=== PATIENT | male | born 1955 | race African-American/Black ===

== ENCOUNTER 2021-12-22 00:42 | Inpatient (IN) | payer MEDICARE ==
[~2021-12-22] VITALS: Ht 172.7 cm; Wt 111.6 kg
[~2021-12-22 00:42] MED LIST: BACTRIM DS TAB1 EACH PO
[2021-12-22 01:04] LABS: EOSINOPHIL 4.3 % (0-7); HCT 33.6 % (42.0-52.0); HGB 11.1 g/dl (13.2-18.0); LYMPHOCYTE 23.6 % (15-48); MCH 29.8 pg (25.0-31.0); MCV 90.3 fL (78.0-100.0); MONOCYTE 9.2 % (0-12); MPV 10.2 fL (6.0-9.5); NEUTROPHIL 61.5 % (41-80); NRBC 0; PLT 305 K/uL (150-400); RBC 3.72 M/uL (4.70-6.00); WBC 10.1 K/uL (4.0-10.5)
[2021-12-22 01:14] LABS: INR 0.93 (0.9-1.2); PROTHROMBIN TIME 11.9 SECONDS (11.8-13.4); PTT 28.7 SECONDS (24.4-34.7)
[2021-12-22 01:25] LABS: ALBUMIN 2.8 g/dL (3.4-5.0); BILIRUBIN - TOTAL 0.4 mg/dL (0.2-1.0); BUN/CREAT RATIO (CALC) 9.1 RATIO; CREATININE 2.08 mg/dL (0.67-1.17); GLOBULIN (CALCULATION) 3.8 g/dL; POTASSIUM 3.8 mmol/L (3.5-5.1); TOTAL PROTEIN 6.6 g/dL (6.4-8.2)
[2021-12-22 04:13] LABS: RETICULOCYTE COUNT 2.7 % (1.0-2.0)
[2021-12-22] MEDS ORDERED: LANTUS100 UNIT/1 SC (05:28)
[2021-12-22] MEDS ORDERED: ALLOPURINOL100 MG PO (05:29)
[2021-12-22] MEDS ORDERED: NORVASC10 MG PO (05:30)
[2021-12-22] MEDS ORDERED: PRAVACHOL20 MG PO (05:31)
[2021-12-22] MEDS ORDERED: VITAMIN D350 MCG PO (05:31)
[2021-12-22] MEDS ORDERED: APRESOLINE100 MG PO (05:31)
[2021-12-22] MEDS ORDERED: COZAAR50 MG PO (05:32)
[2021-12-22] MEDS ORDERED: LASIX20 MG PO (05:32)
[2021-12-22] MEDS ORDERED: HUMALOG100 UNIT/1 SC (05:36)
[2021-12-22 06:01] LABS: IRON % SATURATION 24.2 %SAT (20-50)
[2021-12-22 06:02] LABS: BUN/CREAT RATIO (CALC) 9.3 RATIO; CREATININE 2.04 mg/dL (0.67-1.17); MAGNESIUM 1.6 mg/dL (1.8-2.4); PHOSPHORUS 3.7 mg/dL (2.6-4.7); POTASSIUM 3.1 mmol/L (3.5-5.1)
[2021-12-22 08:20] LABS: CHOLESTEROL 126 mg/dL (<200); HDL 45 mg/dL (40-60); LDL - DIRECT 68 mg/dL (<100); TRIGLYCERIDES 68 mg/dL (<150)
--- NOTE | 2021-12-22 10:41 | NUR ---
12/22/21 Mr. Villarreal is a marrie 66 y/o gentleman. He reports that he and his spouse are post COVID. Ms. Villarreal lost her job due to her 02 use. She is now working 3 days per week. Mr. Villarreal is receiving SS. They are have financial difficulties due to the loss of income. - Mr. Villarreal was educated to [employer], [facility], [employer] and [employer].
[2021-12-23 05:28] LABS: EOSINOPHIL 4.8 % (0-7); HCT 33.5 % (42.0-52.0); HGB 11.1 g/dl (13.2-18.0); LYMPHOCYTE 17.4 % (15-48); MCH 30.1 pg (25.0-31.0); MCHC 33.1 g/dL (32.0-36.0); MCV 90.8 fL (78.0-100.0); MONOCYTE 9.4 % (0-12); MPV 10.5 fL (6.0-9.5); NEUTROPHIL 66.4 % (41-80); NRBC 0; PLT 327 K/uL (150-400); RBC 3.69 M/uL (4.70-6.00); RDW 13.1 % (11.5-14.0); WBC 11.2 K/uL (4.0-10.5)
[2021-12-23 06:14] LABS: BUN/CREAT RATIO (CALC) 6.9 RATIO; CREATININE 2.16 mg/dL (0.67-1.17); MAGNESIUM 1.7 mg/dL (1.8-2.4); POTASSIUM 3.1 mmol/L (3.5-5.1)
[2021-12-23 11:34] LABS: BILIRUBIN 1+ mg/dL (NEGATIVE); BLOOD NEGATIVE Ery/uL (NEGATIVE); CLARITY CLEAR (CLEAR); COLOR YELLOW (YELLOW); GLUCOSE (U) 1+ mg/dL (NORMAL); LEUKOCYTES NEGATIVE Leu/uL (NEGATIVE); NITRITE NEGATIVE (NEGATIVE); PROTEIN 3+ mg/dL (NEGATIVE); SPECIFIC GRAVITY 1.025 (1.001-1.030); UROBILINOGEN 0.2 mg/dL (0.2-1.0)
[2021-12-23 11:46] LABS: AMORPHOUS URATES CRYSTALS TRACE; URINARY RBC RARE
[2021-12-23 11:47] LABS: GRANULAR CASTS TRACE; MUCOUS TRACE
[2021-12-23 11:48] LABS: BACTERIA TRACE; SPERM PRESENT
[2021-12-23 12:34] LABS: URINE CREATININE 231.26 mg/dL (29.00-226.00)
[2021-12-23 13:00] LABS: URINE TOTAL PROTEIN-RANDOM > 500.0 mg/dL (<11.9)
[2021-12-24] MEDS ORDERED: LASIX40 MG PO (09:33)
[2021-12-24] MEDS ORDERED: COZAAR100 MG PO (09:33)
[2021-12-24] MEDS ORDERED: K-TAB ER20 MEQ PO (09:33)
[2021-12-24] MEDS ORDERED: ELIQUIS5 MG PO (10:08)
== END 2021-12-24 10:20 | disposition home or self-care (01) | DRG 291 ==
LOC: FER 00:42 → FTCU 03:01
PROVIDERS: Allergy & Immunology Allergy; Emergency Medicine; Nurse Practitioner Acute Care; ADMIT Internal Medicine
DX: I13.0 Hypertensive heart and chronic kidney disease with heart failure and stage 1 through stage 4 chronic kidney disease, or unspecified chronic kidney disease (principal); I50.33 Acute on chronic diastolic (congestive) heart failure; I16.1 Hypertensive emergency; N17.9 Acute kidney failure, unspecified; E11.22 Type 2 diabetes mellitus with diabetic chronic kidney disease; Z20.822 Contact with and (suspected) exposure to COVID-19; N18.30 Chronic kidney disease, stage 3 unspecified; G47.33 Obstructive sleep apnea (adult) (pediatric); D50.9 Iron deficiency anemia, unspecified; I48.0 Paroxysmal atrial fibrillation; I49.3 Ventricular premature depolarization; R77.8 Other specified abnormalities of plasma proteins; E11.65 Type 2 diabetes mellitus with hyperglycemia; R80.9 Proteinuria, unspecified; I25.10 Atherosclerotic heart disease of native coronary artery without angina pectoris; N40.0 Benign prostatic hyperplasia without lower urinary tract symptoms; E55.9 Vitamin D deficiency, unspecified; Z86.16 Personal history of COVID-19; Z96.651 Presence of right artificial knee joint; Z90.49 Acquired absence of other specified parts of digestive tract; Z98.1 Arthrodesis status; Z90.79 Acquired absence of other genital organ(s); Z79.4 Long term (current) use of insulin; Z79.01 Long term (current) use of anticoagulants; Z79.899 Other long term (current) drug therapy; Z86.711 Personal history of pulmonary embolism
CPT/HCPCS: 36415; 71045; 78582; 80048; 80053; 80061; 81001; 82570; 82607; 82728; 82962; 83036; 83540; 83550; 83735; 83880; 84100; 84156; 84484; 85025; 85379; 85610; 85730; 93005; 93970; 96372; A9540; J1650; J1815; J1940; J2270; J3475; J3490; U0002